=== PATIENT | female | born 1960 | race Caucasian/White ===

== ENCOUNTER → 2019-04-12 13:31 | Outpatient (ROUT) | payer OTHER, SELFPAY ==
[2019-04-12 14:18] LABS: Basophils Absolute Auto 0 /uL (0-100); Basophils Percent Auto 0.5 % (0-2); Eosinophils Absolute Auto 200 /uL (0-450); Eosinophils Percent Auto 2.8 % (2-4); Hematocrit 54.9 % (36-46); Hemoglobin 17.8 g/dL (12.0-16.0); Lymphocytes Absolute Auto 1400 /uL (1100-4500); Lymphocytes Percent Auto 25.4 % (25-40); Mean Corpuscular HGB Conc 32.4 % (30-36); Mean Corpuscular Hemoglobin 23.1 PG (26-34); Mean Corpuscular Volume 71.4 fL (80-100); Monocytes Absolute Auto 500 /uL (0-900); Monocytes Percent Auto 9.3 % (3-14); Neutrophils Absolute Auto 3500 /uL (1500-7000); Platelet Count 397 X10^3/uL (150-400); Red Cell Distribution Width 17.7 % (11.6-14.8); White Blood Cell Count 5.6 X10^3/uL (4.5-11.0)
[2019-04-12 14:22] LABS: Add Manual Diff / Slide Review SLIDE REVIEW; Red Blood Cell Count 7.69 X10^6/uL (4.0-5.2)
[2019-04-12 14:51] LABS: Anisocytosis 2+
== END ==
PROVIDERS: PCP Family Medicine
DX: Z02.71 Encounter for disability determination (principal)
CPT/HCPCS: 36415; 85025

== ENCOUNTER 2021-05-30 08:55 | Emergency (ER) | payer OTHER, MEDICARE, SELFPAY ==
--- NOTE | 2021-05-30 09:03 | ED_ITS ---
HPI - General Adult General Chief complaint: Recheck/Abnormal Lab/Rx Stated complaint: PD HIGH HEMATOCRIT Time Seen by Provider: 05/30/21 08:57 History of Present Illness HPI narrative: Patient is a 60 year old female with polycythemia vera who gets occasional therapeutic phlebotomies for high hematocrit. Her last phlebotomy was in August. She had 300 cc removed at that time. Had blood drawn as an outpatient a couple days ago ordered by her primary doctor. The results did show a elevated hematocrit into the mid 50s. She is otherwise asymptomatic. She states she contacted her primary doctor's office and they could not get her in until next month so she came to the emergency department for evaluation. Related Data Allergies Allergy/AdvReac Type Severity Reaction Status Date / Time ciprofloxacin [CIPROFLOXACIN] Allergy Unknown Unverified 02/24/18 12:04 Review of Systems Constitutional Constitutional: Denies fever(s) Cardiovascular Cardiovascular: Reports system reviewed and no additional complaints, except as documented Respiratory Respiratory: Reports system reviewed and no additional complaints, except as documented Gastrointestinal Gastrointestinal: Reports system reviewed and no additional complaints, except as documented Integumentary/Breasts Skin/Breast: Reports system reviewed and no additional complaints, except as documented Neurologic Neurologic: Reports system reviewed and no additional complaints, except as documented Hematologic/Lymphatic On Anticoagulants: No Patient History Medical History Polycythemia vera Social History lives independently: Yes Smoking Status: Never smoker Exam Initial Vital Signs Initial Vital Signs: Vital Signs Temperature 98 F 05/30/21 09:05 Pulse Rate 88 05/30/21 09:05 Respiratory Rate 18 05/30/21 09:05 Blood Pressure 174/103 H 05/30/21 09:05 HENMT Head: normal to inspection and normocephalic Eyes General: appearance normal, both eyes and all related structures Resp Effort & Inspection: normal respiratory effort Cardio Rate: regular rate GI Inspection: normal to inspection Skin General: no rashes or lesions noted Neuro General: patient alert, patient awake and patient oriented x3 Extrem General: normal to inspection Psych Appearance: grossly normal and well kempt Course Orders Ordered: ED Orders 05/30/21 09:13 Therapeutic Phlebotomy Stat Vital Signs Vital signs: Vital Signs - 8 hr 05/30/21 09:05 Temperature 98 F Pulse Rate 88 Respiratory Rate 18 Blood Pressure 174/103 H Medical Decision Making MDM Narrative Medical decision making narrative: I did review her outpatient labs. She does have a hematocrit in the mid 50s. She is otherwise asymptomatic. Attempted to get a therapeutic phlebotomy done today in the emergency department however we are unable to do so given the length of time/staffing issues with the lab. I did discuss the case with Dr. Velázquez who was the individual who ordered her ou tpatient labs. His office will contact her to schedule a follow-up appointment and also a outpatient full body me. I informed the patient of this. She expressed understanding and agreement. Discharge Plan Departure Patient Disposition: Home Clinical Impression: Polycythemia vera Instructions: Primary Polycythemia Activity Restrictions/Additional Instructions: Dr. Peterson's office will be contacting you to schedule a follow-up with someone in their clinic and also to discuss an outpatient phlebotomy. Return to the emergency department for any new or worsening symptoms Referrals: Amilcar Schulte DO [Non-Staff] -
[2021-05-30 09:05] VITALS: BP 174/103; PULSE 88; RESP 18; TEMP 36.6; BMI 24.2
[2021-05-30 09:08] VITALS: PULSE 70; RESP 20
[2021-05-30 09:30] VITALS: BP 145/95; PULSE 66; RESP 17
[2021-05-30 10:00] VITALS: PULSE 56; RESP 18
[2021-05-30 10:30] VITALS: BP 147/81; PULSE 60; RESP 31
[2021-05-30 10:44] VITALS: BP 147/81; PULSE 60; RESP 18; TEMP 36.6; O2SAT 98
== END 2021-05-30 10:44 | disposition home or self-care (01) ==
PROVIDERS: Emergency Provider Emergency Medicine; PCP Internal Medicine
DX: D45 Polycythemia vera (principal)
CPT/HCPCS: 99281

== ENCOUNTER → 2021-06-04 11:24 | Outpatient (CLI) | payer OTHER, MEDICARE, SELFPAY ==
[2021-06-04 12:21] LABS: 585 Gram Check PASS; Amount Collected in g 300g; Dizziness NO; Postdiastolic BP 100; Postsystolic BP 147; Prediastolic 112; Presystolic 168; Pulse 78; Site of phlebotomy RAC; Swelling NO; Temperature 97.6; Therapeutic Phleb Comment NO COMMENT; Zero Check Sebra Scale PASS
== END ==
PROVIDERS: PCP Internal Medicine; Referring Provider Internal Medicine Hematology & Oncology; Visit Provider Internal Medicine Hematology & Oncology
DX: D45 Polycythemia vera (principal)
CPT/HCPCS: 99195

== ENCOUNTER → 2021-10-15 10:56 | Outpatient (CLI) | payer MEDICARE, SELFPAY ==
[2021-10-15 11:29] LABS: 585 Gram Check PASS; Prediastolic 97; Presystolic 152; Pulse 77; Zero Check Sebra Scale PASS
[2021-10-15 11:30] LABS: Amount Collected in g 300g; Dizziness NO; Postdiastolic BP 99; Postsystolic BP 147; Site of phlebotomy RAC; Swelling NO; Therapeutic Phleb Comment NO COMMENT
== END ==
PROVIDERS: PCP Internal Medicine; Referring Provider Internal Medicine; Visit Provider Internal Medicine
DX: D45 Polycythemia vera (principal)
CPT/HCPCS: 99195

== ENCOUNTER → 2022-03-04 09:19 | Outpatient (CLI) | payer MEDICARE, SELFPAY ==
--- NOTE | 2022-03-04 | DI.US.S_ITS ---
PROCEDURE: US ABDOMEN LIMITED INDICATIONS: POLYCYTHEMIA VERA; SPLEEN SIZE TECHNIQUE: Real-time focused scanning was performed of the abdomen, with image documentation. COMPARISON: None. FINDINGS: The spleen demonstrates a greatest length of 10 cm, with additional measurements of 5.7 and 5.4 cm, with a calculated splenic volume of 160 cc. IMPRESSION: Normal spleen size. Dictated by: Mendez Porras M.D. on 03/04/2022 at 9:21 Approved by: Mendez Porras M.D. on 03/04/2022 at 9:22
[2022-03-04 11:40] LABS: 585 Gram Check PASS; Pulse 76; Zero Check Sebra Scale PASS
[2022-03-04 11:41] LABS: Amount Collected in g 303g; Dizziness NO; Postdiastolic BP 105; Postsystolic BP 147; Prediastolic 99; Presystolic 147; Site of phlebotomy RAC; Swelling NO; Temperature 97.6; Therapeutic Phleb Comment NO COMMENT
== END ==
PROVIDERS: PCP Internal Medicine; Referring Provider Internal Medicine; Visit Provider Internal Medicine
DX: D45 Polycythemia vera (principal); Z85.038 Personal history of other malignant neoplasm of large intestine
CPT/HCPCS: 76705; 99195

== ENCOUNTER → 2023-07-09 10:00 | Outpatient (CLI) | payer MEDICARE, SELFPAY ==
[2023-07-09 11:30] LABS: Hematocrit 51.4 % (36-46); Hemoglobin 16.4 g/dL (12.0-16.0)
[2023-07-09 11:44] LABS: 585 Gram Check PASS; Patient Weight <110 lb NO; Prediastolic 100 mmHg; Presystolic 162 mmHg; Pulse 83 bpm; Therapeutic Phleb Consent Chec Consent signed @ reg; Zero Check Sebra Scale PASS
[2023-07-09 11:45] LABS: Amount Collected in g 300 g; Amount Collected mL calc 237 mL; Postdiastolic BP 90 mmHg; Postsystolic BP 133 mmHg; Site of phlebotomy Right antecubital; Temperature 96.5; Therapeutic Phleb Start Time 1115; Therapeutic Phleb Stop Time 1130
== END ==
PROVIDERS: PCP Internal Medicine; Referring Provider Internal Medicine; Visit Provider Internal Medicine
DX: D45 Polycythemia vera (principal); D47.3 Essential (hemorrhagic) thrombocythemia; Z85.038 Personal history of other malignant neoplasm of large intestine
CPT/HCPCS: 85014; 85018; 99195

== ENCOUNTER → 2023-09-29 11:13 | Outpatient (CLI) | payer MEDICARE, SELFPAY ==
[2023-09-29 11:50] LABS: Hematocrit 47.8 % (36-46); Hemoglobin 14.9 g/dL (12.0-16.0); Mean Corpuscular HGB Conc 31.2 % (30-36); Mean Corpuscular Hemoglobin 19.8 PG (26-34); Mean Corpuscular Volume 63.6 fL (80-100); Platelet Count 487 X10^3/uL (150-400); Red Blood Cell Count 7.52 X10^6/uL (4.0-5.2)
[2023-09-29 12:57] LABS: 585 Gram Check PASS; Amount Collected in g 292 g; Amount Collected mL calc 230 mL; Patient Weight <110 lb NO; Postdiastolic BP 101 mmHg; Postsystolic BP 152 mmHg; Prediastolic 105 mmHg; Presystolic 153 mmHg; Pulse 68 bpm; Site of phlebotomy Right antecubital; Temperature 97.5; Therapeutic Phleb Consent Chec Consent signed @ reg; Therapeutic Phleb Start Time 1155; Therapeutic Phleb Stop Time 1205; Zero Check Sebra Scale PASS
== END ==
PROVIDERS: PCP Internal Medicine; Referring Provider Internal Medicine; Visit Provider Internal Medicine
DX: D45 Polycythemia vera (principal)
CPT/HCPCS: 85027; 99195

== ENCOUNTER → 2024-03-02 10:59 | Outpatient (CLI) | payer MEDICARE, SELFPAY ==
[2024-03-02 12:05] LABS: Hemoglobin 15.3 g/dL (12.0-16.0)
[2024-03-02 12:24] LABS: 585 Gram Check PASS; Patient Weight <110 lb NO; Prediastolic 106 mmHg; Presystolic 175 mmHg; Pulse 67 bpm; Temperature 97.4; Therapeutic Phleb Consent Chec Consent signed @ reg; Zero Check Sebra Scale PASS
[2024-03-02 12:25] LABS: Amount Collected in g 300 g; Amount Collected mL calc 237 mL; Site of phlebotomy Right antecubital; Therapeutic Phleb Start Time 1210; Therapeutic Phleb Stop Time 1220
[2024-03-02 12:26] LABS: Postdiastolic BP 98 mmHg; Postsystolic BP 147 mmHg
== END ==
LOC: LAB 11:02
PROVIDERS: PCP Internal Medicine; Referring Provider Internal Medicine; Visit Provider Internal Medicine
DX: D45 Polycythemia vera (principal)
CPT/HCPCS: 85014; 85018; 99195

== ENCOUNTER → 2024-09-16 11:01 | Outpatient (CLI) | payer MEDICARE, SELFPAY ==
[2024-09-16 11:49] LABS: Hematocrit 47.8 % (36-46); Hemoglobin 15.1 g/dL (12.0-16.0)
[2024-09-16 12:08] LABS: 585 Gram Check PASS; Amount Collected in g 332 g; Amount Collected mL calc 268 mL; Patient Weight <110 lb NO; Postdiastolic BP 104 mmHg; Postsystolic BP 161 mmHg; Prediastolic 101 mmHg; Presystolic 156 mmHg; Pulse 77 bpm; Site of phlebotomy Right antecubital; Therapeutic Phleb Consent Chec Consent signed @ reg; Therapeutic Phleb Start Time 1130; Therapeutic Phleb Stop Time 1150; Zero Check Sebra Scale PASS
== END ==
PROVIDERS: PCP Internal Medicine; Referring Provider Internal Medicine; Visit Provider Internal Medicine
DX: D45 Polycythemia vera (principal)
CPT/HCPCS: 85014; 85018; 99195

== ENCOUNTER → 2025-09-21 14:51 | Outpatient (CLI) | payer MEDICARE, SELFPAY ==
[2025-09-21 15:29] LABS: Hematocrit 49.5 % (36-46); Hemoglobin 15.6 g/dL (12.0-16.0); Lymphocytes Absolute Auto 1300 /uL (1100-4500); Mean Corpuscular HGB Conc 31.5 % (30-36); Mean Corpuscular Hemoglobin 19.1 PG (26-34); Mean Corpuscular Volume 60.5 fL (80-100); Platelet Count 521 X10^3/uL (150-400)
[2025-09-21 15:30] LABS: Add Manual Diff / Slide Review SLIDE REVIEW
[2025-09-21 15:34] LABS: HEMOLYSIS 23 (0-50); Iron 32 ug/dL (37-170)
[2025-09-21 15:35] LABS: Microcytosis 2+
[2025-09-21 15:49] LABS: Percent Iron Saturation 7 % (15-50); Total Iron Binding Capacity 468 ug/dL (265-497); Transferrin 405 mg/dL (206-381)
[2025-09-21 16:10] LABS: Ferritin 9 ng/mL (11-264)
== END ==
PROVIDERS: PCP Internal Medicine; Referring Provider Internal Medicine; Visit Provider Internal Medicine
DX: D45 Polycythemia vera (principal)
CPT/HCPCS: 82728; 83540; 83550; 85025